=== PATIENT | male | born 1955 ===

== ENCOUNTER 2021-03-17 15:47 | Emergency (ER) | payer MEDICARE ==
--- NOTE | 2021-03-17 19:22 | Emergency Department Report ---
ED Male HPI - General Chief complaint: Urogenital-Male Stated complaint: CATH REMOVE Time Seen by Provider: 03/17/21 19:16 Source: patient Mode of arrival: Ambulatory Limitations: No Limitations - History of Present Illness Initial comments: Patient is a 65-year-old male presents emergency room requesting for his Sy catheter to be removed. Patient had a Sy catheter placed on 02/24/[address] Bibiana ritter in [facility]. He states he been followed up on 03/04/2021 and attempted a voiding trial and was unable to void and had to have it replaced. He states his next follow-up appointment is not until March. He denies any pain, hematuria, dysuria, leaking of the catheter, back pain. - Related Data Allergies Allergy/AdvReac Type Severity Reaction Status Date / Time No Known Allergies Allergy Unverified 03/17/21 17:27 ED Review of Systems ROS: Stated complaint: CATH REMOVE Other details as noted in HPI Comment: All other systems reviewed and negative ED Past Medical Hx - Past Medical History Previous Medical History?: No ED Physical Exam - General Limitations: No Limitations General appearance: alert, in no apparent distress - Head Head exam: Present: atraumatic, normocephalic - Eye Eye exam: Present: normal appearance - ENT ENT exam: Present: mucous membranes moist - Respiratory Respiratory exam: Absent: respiratory distress, accessory muscle use - Neurological Exam Neurological exam: Present: alert, oriented X3 - Psychiatric Psychiatric exam: Present: normal affect, normal mood - Skin Skin exam: Present: warm, dry, intact ED Course Vital Signs 03/17/21 17:29 Temperature 98.1 F Pulse Rate 71 Respiratory 16 Rate Blood Pressure 113/72 [Right] O2 Sat by Pulse 94 Oximetry ED Medical Decision Making - Medical Decision Making Patient is a 65-year-old male presents emergency room requesting for his Sy catheter to be removed. Patient had a Sy catheter placed on 02/24/[address] Bibiana ritter in [facility]. He states he been followed up on 03/04/2021 and attempted a voiding trial and was unable to void and had to have it replaced. He states his next follow-up appointment is not until March. He denies any pain, hematuria, dysuria, leaking of the catheter, back pain. I advised patient that we would not be able to remove his Sy catheter in the emergency department and stressed the importance of urology follow-up given that it was already attempted to be removed previously and he was still unsuccessful in voiding. Patient also given a local urologist if he is unable to follow-up with his doctor in [place]. Critical care attestation.: If time is entered above; I have spent that time in minutes in the direct care of this critically ill patient, excluding procedure time. ED Disposition Clinical Impression: Sy catheter in place Disposition: TO HOME OR SELFCARE Is pt being admited?: No Does the pt Need Aspirin: No Condition: Stable Additional Instructions: Please follow-up with urologist to discuss your catheter. Return to emergency room for any new or worse symptoms including but not limited to sy not draining, fever, chills, vomiting, blood or pus in urine, etc. Referrals: INGRIS CHAU MD [Staff Physician] - 2-3 Days Time of Disposition: 19:23 Print Language: LATVIAN
== END 2021-03-17 20:17 | disposition home or self-care (01) ==
LOC: ED 15:47
CPT/HCPCS: 99282

== ENCOUNTER 2021-03-28 20:12 | Emergency (ER) | payer MEDICARE, MEDICAID ==
[2021-03-28 21:14] VITALS: BP 136/85
--- NOTE | 2021-03-29 05:47 | Emergency Department Report ---
ED Male HPI - General Chief complaint: Urogenital-Male Stated complaint: CHANGE CATH BAG Source: patient Mode of arrival: Ambulatory Limitations: No Limitations - History of Present Illness Initial comments: Patient is a 65-year-old -[place] male with a history of bipolar disorder and BPH and recurrent urinary retention and is currently having an indwelling Sy catheter in place with a leg bag presents to the ED with complaint of Sy catheter leg bag for the last 2 days. Patient states that the Sy catheter has been present for the last 2 weeks but the leaking started 2 days ago. Patient denies suprapubic pain, nausea, vomiting, fever, chills, dizziness, syncope, abdominal pain, hematuria, traumatic injury or low back pain. MD Complaint: other (Leaking sy bag) -: Sudden, days(s) (2) Radiation: none Severity: mild Severity scale (0 -10): 0 Consistency: constant Improves with: none Worsens with: none denies other symptoms, other (leaking sy catheter bag). denies: discharge, swelling, mass, rash, urinary retention, blood in urine, dysuria, fever, nausea/vomiting, incontinence - Related Data Sexually active: No Allergies Allergy/AdvReac Type Severity Reaction Status Date / Time No Known Allergies Allergy Unverified 03/17/21 17:27 ED Review of Systems ROS: Stated complaint: CHANGE CATH BAG Other details as noted in HPI Constitutional: denies: chills, fever Eyes: denies: eye pain, eye discharge, vision change ENT: denies: ear pain, throat pain Respiratory: denies: cough, shortness of breath, wheezing Cardiovascular: denies: chest pain, palpitations Endocrine: no symptoms reported Gastrointestinal: denies: abdominal pain, nausea, vomiting, diarrhea Genitourinary: other (Leaking Sy catheter back). denies: urgency, dysuria Musculoskeletal: denies: back pain, joint swelling, arthralgia Skin: denies: rash, lesions Neurological: denies: headache, weakness, paresthesias Psychiatric: denies: anxiety, depression Hematological/Lymphatic: denies: easy bleeding, easy bruising ED Past Medical Hx - Past Medical History Previous Medical History?: Yes Hx Psychiatric Treatment: Yes (bipolar) Additional medical history: BPH; bladder problem - Surgical History Past Surgical History?: No ED Physical Exam - General Limitations: No Limitations General appearance: alert, in no apparent distress - Head Head exam: Present: atraumatic, normocephalic, normal inspection - Eye Eye exam: Present: normal appearance, PERRL, EOMI Pupils: Present: normal accommodation - ENT ENT exam: Present: normal exam, normal orophraynx, mucous membranes moist, TM's normal bilaterally, normal external ear exam - Neck Neck exam: Present: normal inspection, full ROM - Respiratory Respiratory exam: Present: normal lung sounds bilaterally. Absent: respiratory distress, wheezes, rales, chest wall tenderness, accessory muscle use - Cardiovascular Cardiovascular Exam: Present: regular rate, normal rhythm, normal heart sounds. Absent: systolic murmur, diastolic murmur, rubs, gallop - GI/Abdominal GI/Abdominal exam: Present: soft, normal bowel sounds. Absent: tenderness, guarding, hyperactive bowel sounds, organomegaly - Extremities Exam Extremities exam: Present: normal inspection, full ROM, normal capillary refill - Back Exam Back exam: Present: normal inspection, full ROM. Absent: tenderness, CVA tenderness (R), CVA tenderness (L), muscle spasm, paraspinal tenderness, vertebral tenderness - Neurological Exam Neurological exam: Present: alert, oriented X3, CN II-XII intact, normal gait, reflexes normal - Psychiatric Psychiatric exam: Present: normal affect, normal mood - Skin Skin exam: Present: warm, dry, intact, normal color. Absent: rash ED Course Vital Signs 03/28/21 21:13 Temperature 98.4 F Pulse Rate 89 Respiratory 18 Rate Blood Pressure 136/85 [Left] O2 Sat by Pulse 96 Oximetry ED Medical Decision Making - Medical Decision Making This is a 65-year-old -[place] male with a history of bipolar disorder and BPH and recurrent urinary retention and is currently having an indwelling Sy catheter in place with a leg bag presents to the ED with complaint of Sy catheter leg bag for the last 2 days. Patient states that the Sy catheter has been present for the last 2 weeks but the leaking started 2 days ago. In the ED, patient is alert and oriented x3 and is not in any distress. Patient is hemodynamically stable. The Sy catheter bag was changed in the ED successfully. Patient was thereafter discharged home and advised to follow-up with his urologist in 5 to 7 days for reevaluation. Patient was also advised return to the ED immediately if symptoms get worse. - Differential Diagnosis Leaking catheter bag; Catheter malfunction Critical care attestation.: If time is entered above; I have spent that time in minutes in the direct care o f this critically ill patient, excluding procedure time. ED Disposition Clinical Impression: Sy catheter problem Qualifiers: Encounter type: initial encounter Qualified Code(s): T83.9XXA - Unspecified complication of genitourinary prosthetic device, implant and graft, initial encounter Disposition: TO HOME OR SELFCARE Is pt being admited?: No Does the pt Need Aspirin: No Condition: Stable Additional Instructions: Follow-up with your urologist in 7 to 10 days for reevaluation. Return to the ED immediately if symptoms get worse. Referrals: INGRIS CHAU MD [Staff Physician] - 3-5 Days Time of Disposition: 05:51 Print Language: TAMAZIGHT
== END 2021-03-29 06:02 | disposition home or self-care (01) ==
LOC: ED 20:12
DX: T83.031A Leakage of indwelling urethral catheter, initial encounter (principal); N40.0 Benign prostatic hyperplasia without lower urinary tract symptoms; Y92.89 Other specified places as the place of occurrence of the external cause
CPT/HCPCS: 99282